=== PATIENT | female | born 1945 | race Caucasian/White ===

== ENCOUNTER 2022-07-12 14:15 | Observation (INO) ==
[2022-07-13 13:56] LABS: Hematocrit 42.9 % (35.3-44.9); Hemoglobin 13.3 g/dL (11.5-15.4); Mean Corpuscular Hemoglobin 28.7 pg (28.0-33.3); Mean Corpuscular Volume 92.7 fL (83.0-100.0); Mean Platelet Volume 10.4 fL (9.4-12.4); Platelet Count 237 K/mcL (140-400); Red Blood Count 4.63 M/mcL (3.82-4.97); Red Cell Distribution Width 14.8 % (11.5-14.5); White Blood Count 10.4 K/mcL (4.3-11.1)
[2022-07-13 14:12] LABS: Calcium 9.5 mg/dL (8.6-10.3); Potassium 4.3 mEq/L (3.5-5.1)
[2022-07-13] MEDS ORDERED: Apixaban 5 MG TABLET ONE (19:35)
[2022-07-13] MEDS: Apixaban 5 MG TABLET PO SCH (19:38)
[2022-07-14] MEDS ORDERED: DilTIAZem CD (24hr) 120 MG CAP.ER.24H PO SCH (09:00)
[2022-07-14] MEDS: lisinopriL 10 MG TABLET PO SCH (09:45)
[2022-07-14] MEDS: Apixaban 5 MG TABLET PO SCH ×2 (09:45→21:02)
[2022-07-14] MEDS ORDERED: Acetaminophen 325 MG TABLET PO PRN (10:19)
[2022-07-14] MEDS: Furosemide 20 MG TABLET PO SCH (11:00)
[2022-07-15 03:25] LABS: Potassium 5.1 mEq/L (3.5-5.1)
[2022-07-15] MEDS: Apixaban 5 MG TABLET PO SCH ×2 (09:37→21:29)
[2022-07-15] MEDS: Multivit/Ca/Min/Fe/FA 1 TAB TABLET PO SCH (09:37)
[2022-07-15] MEDS: lisinopriL 10 MG TABLET PO SCH (09:37)
[2022-07-15] MEDS ORDERED: *HR* Midazolam HCl 5 MG/5 ML VIAL IVP ONE (11:48)
[2022-07-15] MEDS ORDERED: *HR* FentaNYL (PF) 250 MCG/5 ML VIAL ONE (11:48)
[2022-07-15] MEDS ORDERED: 0.9 % Sodium Chloride 1,000 ML ONE (11:56)
[2022-07-15] MEDS: Furosemide 20 MG TABLET PO SCH (14:49)
[2022-07-16 07:44] VITALS: BP 117/62; PULSE 45; TEMP 97.9
[2022-07-16] MEDS: lisinopriL 10 MG TABLET PO SCH (08:20)
[2022-07-16] MEDS: Multivit/Ca/Min/Fe/FA 1 TAB TABLET PO SCH (08:20)
[2022-07-16] MEDS: Apixaban 5 MG TABLET PO SCH (08:20)
[2022-07-16] MEDS: Furosemide 20 MG TABLET PO SCH (08:20)
[2022-07-16] MEDS ORDERED: DilTIAZem CD (24hr) 120 MG CAP.ER.24H PO SCH (09:00)
[2022-07-16 11:01] VITALS: O2SAT 98
== END 2022-07-16 11:42 | disposition home or self-care (01) ==
LOC: 2ANU
PROVIDERS: ADMIT Internal Medicine Clinical Cardiac Electrophysiology; ATTEND Internal Medicine Clinical Cardiac Electrophysiology